=== PATIENT | male | born 1970 | race African-American/Black ===

== ENCOUNTER 2016-10-15 11:15 | Emergency (ER) | payer MEDICAID ==
[~2016-10-15] VITALS: Ht 167.6 cm; Wt 76.9 kg
[2016-10-15 11:20] VITALS: BP 132/80
== END 2016-10-15 12:06 | disposition home or self-care (01) ==
LOC: ED 11:45
DX: T55.1X1A Toxic effect of detergents, accidental (unintentional), initial encounter (principal); L24.0 Irritant contact dermatitis due to detergents; Y92.69 Other specified industrial and construction area as the place of occurrence of the external cause
CPT/HCPCS: 99283

== ENCOUNTER 2017-08-04 12:22 | Emergency (ER) | payer MEDICAID ==
[~2017-08-04] VITALS: Ht 167.6 cm; Wt 76.5 kg
[2017-08-04 12:23] VITALS: BP 135/88
[2017-08-04] MEDS ORDERED: CEFTRIAXONE 250 MG ONE (12:48)
[2017-08-04] MEDS ORDERED: LIDOCAINE-MPF 1%, 2ML ONE (12:49)
[2017-08-04] MEDS ORDERED: AZITHROMYCIN 500 MG TABLET ONE (12:53)
[2017-08-04] MEDS ORDERED: CEFTRIAXONE 250 MG IM ONE (13:00)
[2017-08-04] MEDS ORDERED: AZITHROMYCIN 500 MG TABLET PO ONE (13:00)
== END 2017-08-04 13:12 | disposition home or self-care (01) ==
LOC: ED 12:30
DX: Z20.2 Contact with and (suspected) exposure to infections with a predominantly sexual mode of transmission (principal)
CPT/HCPCS: 96372; 99283; J0696

== ENCOUNTER 2017-12-27 22:09 | Emergency (ER) | payer MEDICAID ==
[~2017-12-27] VITALS: Ht 167.6 cm; Wt 79.7 kg
[2017-12-27 22:10] VITALS: BP 132/100
== END 2017-12-27 23:10 | disposition home or self-care (01) ==
LOC: ED 23:04
DX: K08.89 Other specified disorders of teeth and supporting structures (principal); F17.200 Nicotine dependence, unspecified, uncomplicated; J45.909 Unspecified asthma, uncomplicated
CPT/HCPCS: 99283

== ENCOUNTER 2020-07-09 04:38 | Emergency (ER) | payer SELFPAY ==
[~2020-07-09] VITALS: Ht 167.6 cm; Wt 77.2 kg
[~2020-07-09 04:38] MED LIST: AMOX1TAB64 PO
--- NOTE | 2020-07-09 04:50 | NUR ---
assessment made. chart up for MD to see. c/o left hand swelling noticed today.
--- NOTE | 2020-07-09 04:56 | NUR ---
PA at bedside.
[2020-07-09] MEDS ORDERED: KETOROLAC 30 MG/1 ML ONE (04:57)
[2020-07-09] MEDS ORDERED: KETOROLAC 30 MG/1 ML IM ONE (05:00)
--- NOTE | 2020-07-09 05:01 | NUR ---
patient medicated for pain and swelling. awaiting X ray.
--- NOTE | 2020-07-09 05:10 | NUR ---
X ray done. awaiting result.
--- NOTE | 2020-07-09 06:01 | NUR ---
re-evaluation done. patient discharged with prescription and instruction. patient falling asleep during discharge. security called for assistance.
[2020-07-09 06:02] VITALS: BP 132/78
== END 2020-07-09 06:06 | disposition home or self-care (01) ==
LOC: ED 06:00
DX: L24.9 Irritant contact dermatitis, unspecified cause (principal); M79.642 Pain in left hand; F17.210 Nicotine dependence, cigarettes, uncomplicated
CPT/HCPCS: 73130; 96372; 99283; J1885